=== PATIENT | female | born 1995 | race Caucasian/White ===

== ENCOUNTER 2019-06-23 01:26 | Emergency (ER) | payer OTHER ==
--- NOTE | 2019-06-23 01:53 | PDOC ---
*Physical Exam - Vital Signs Last Vital Signs Temp Pulse Resp BP Pulse Ox 97.6 F 100 H 18 129/97 100 06/23/19 01:37 06/23/19 01:37 06/23/19 01:37 06/23/19 01:37 06/23/19 01:37 Medical Decision Making - Medical Decision Making 06/23/19 01:52 Patient seen by the advanced practice provider under my direct supervision. Ancillary testing reviewed as necessary. I agree with plan as outlined by the advanced practice provider. Discharge - Discharge Information Problems reviewed: Yes Clinical Impression/Diagnosis: History of exposure to blood or body fluid - Follow up/Referral Referrals: Jacob Castillo [Primary Care Provider] - - Patient Discharge Instructions
[2019-06-23 02:00] VITALS: BP 129/97; PULSE 100; TEMP 97.6; BMI 23.6
--- NOTE | 2019-06-23 02:12 | PDOC ---
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 patient reports that she had gloves on and felt a prick. patient post exposure washed hands Timing: just prior to arrival Past History - Past Medical History Allergies/Adverse Reactions: Allergies Allergy/AdvReac Type Severity Reaction Status Date / Time ibuprofen Allergy Verified 06/23/19 01:39 COPD: No - Psycho Social/Smoking Cessation Hx Smoking History: Never smoked *Physical Exam - Vital Signs Last Vital Signs Temp Pulse Resp BP Pulse Ox 97.6 F 100 H 18 129/97 100 06/23/19 01:37 06/23/19 01:37 06/23/19 01:37 06/23/19 01:37 06/23/19 01:37 - Physical Exam General Appearance: Yes: Appropriately Dressed Integumentary: positive: Normal Color, Dry, Warm, Other (punch noted to right index finger) Neurologic: positive: Fully Oriented, Alert, Normal Mood/Affect Post Exposure - ED Protocol - Exposure Treatment Washing/Decontamination: Soap/Water Source Patient HIV Status:: Unknown ( of source patient) Is PEP indicated?: No Prophylaxis for HIV discussed?: Yes Prophylaxis given?: No - Referrals Employee Referred to Employee Health:: Yes (Source patient labs pending. PEP held for now. ) ED Progress Note - Progress Note Progress Note: 06/23/19 02:26 A: post exposure evaluation P: labs source patient tested 06/25/19 11:06 Source patient test reviewed. Informed patient of the [ending labs Medical Decision Making - Medical Decision Making 06/23/19 02:20 Source patient: 06/23/19 02:50 source patient gave Verbal consent. Hepatitis panel and HIV ordered for source patient. Nursing merchandise supervisor Judith aware of this and reports that lab will be drawn in the AM. we will get baseline labs for eliezer. Ms. Apodaca is to follow up with employee gaurav for results of source patient and self. PEP held for now Discharge - Discharge Information Problems reviewed: Yes Clinical Impression/Diagnosis: History of exposure to blood or body fluid, Needle stick injury of finger Disposition: HOME - Follow up/Referral Referrals: Jacob Castillo [Primary Care Provider] - - Patient Discharge Instructions Patient Printed Discharge Instructions: How to Handle Body Fluid Exposure -- Healthcare Worker Additional Instructions: please follow up with employee health for results of Source patient and self. MRN source patient:: - Post Discharge Activity Work/Back to School Note: Back to Work
[2019-06-23 03:13] LABS: BASO % 0.7 % (0-2.0); EOS % 2.5 % (0-4.5); HEMATOCRIT 39.8 % (32.4-45.2); HEMOGLOBIN 14.1 GM/dL (10.7-15.3); LYMPH % 33.7 % (8-40); MCHC 35.5 g/dl (32.0-36.0); MEAN CELL VOLUME 90.1 fl (80-96); MEAN PLT VOLUME 8.8 fl (7.5-11.1); MONO % 9.1 % (3.8-10.2); PLATELET COUNT 208 K/MM3 (134-434); RBC 4.42 M/mm3 (3.60-5.2); RDW 13.2 % (11.6-15.6); WHITE BLOOD COUNT 8.2 K/mm3 (4.0-10.0)
[2019-06-23 03:38] LABS: ALBUMIN 4.6 g/dl (3.4-5.0); BILIRUBIN,TOTAL 0.3 mg/dL (0.2-1); CREATININE 0.8 mg/dL (0.55-1.3); POTASSIUM 3.8 mmol/L (3.5-5.1); TOT PROT 7.9 g/dl (6.4-8.2)
== END 2019-06-23 03:34 | disposition home or self-care (01) ==
LOC: JER 01:26
DX: Z77.21 Contact with and (suspected) exposure to potentially hazardous body fluids (principal); W46.1XXA Contact with contaminated hypodermic needle, initial encounter; Y93.89 Activity, other specified; Y92.239 Unspecified place in hospital as the place of occurrence of the external cause; Y99.0 Civilian activity done for income or pay; Z88.8 Allergy status to other drugs, medicaments and biological substances
CPT/HCPCS: 36415; 80053; 85025; 86317; 86704; 86706; 86803; 87340; 87389; 99282-25

== ENCOUNTER 2019-07-28 09:03 | Emergency (ER) | payer OTHER ==
[2019-07-28 09:12] VITALS: BP 153/97; PULSE 80; TEMP 98.2; BMI 23.1
--- NOTE | 2019-07-28 09:22 | PDOC ---
History of Present Illness - General Chief Complaint: Blood/Body Fluid Exposure SJR Stated Complaint: NEEDLE STICK Time Seen by Provider: 07/28/19 09:19 History Source: Patient Exam Limitations: No Limitations - History of Present Illness Initial Comments: 07/28/19 09:19 Patient works as a nurse on the eighth floor at [employer], and was disposing of both a syringe/needle and Colace wrapper with sharp edge and feels may have injured her right third digit. There was no bleeding, but felt sharp edge. Discussed this case with her nurse entertainment manager who recommended her being evaluated for possible injury and exposure. Patient denies bleeding, denies pain to her finger, and no other injury. Is this a multiple visit Asthma Patient?: No Timing/Duration: unsure Past History - Travel Traveled outside of the country in the last 30 days: No Close contact w/someone who was outside of country & ill: No - Past Medical History Allergies/Adverse Reactions: Allergies Allergy/AdvReac Type Severity Reaction Status Date / Time ibuprofen Allergy Verified 07/28/19 09:08 Home Medications: Ambulatory Orders NK [No Known Home Medication] 07/28/19 COPD: No - Immunization History Immunization Up to Date: Yes - Psycho Social/Smoking Cessation Hx Smoking History: Never smoked Information on smoking cessation initiated: No Hx Alcohol Use: No Drug/Substance Use Hx: No Review of Systems - Review of Systems Able to Perform ROS?: Yes Is the patient limited Sinhala proficient: Yes Constitutional: Yes: Symptoms Reported, See HPI HEENTM: Yes: Symptoms Reported, See HPI All Other Systems: Reviewed and Negative *Physical Exam - Vital Signs Last Vital Signs Temp Pulse Resp BP Pulse Ox 98.2 F 80 18 153/97 100 07/28/19 09:09 07/28/19 09:09 07/28/19 09:09 07/28/19 09:09 07/28/19 09:09 - Physical Exam General Appearance: Yes: Nourished, Appropriately Dressed. No: Apparent Distress HEENT: positive: RACHAEL, Normal ENT Inspection, TMs Normal, Pharynx Normal Neck: positive: Supple. negative: Tender Respiratory/Chest: positive: Lungs Clear Extremity: positive: Normal Capillary Refill, Normal Inspection, Normal Range of Motion Integumentary: positive: Normal Color, Dry, Warm, Other (Superficial abrasion noted to the distal aspect of the left third digit with no puncture wound, no active bleeding, no bruising, full range of motion without evidence of significant injury.) Neurologic: positive: burlap bag sewer II-XII NML intact, Fully Oriented, Alert, Normal Mood/ Affect, Normal Response, Motor Strength /5 Medical Decision Making - Medical Decision Making 07/28/19 17:04 Nurse on eighth floor with concerns about exposure however skin does not appear to be broken therefore there was no exposure encouraged. Recommended to use more caution, and keep wound protected until completely healed. Discharge - Discharge Information Problems reviewed: Yes Clinical Impression/Diagnosis: Finger abrasion Qualifiers: Encounter type: initial encounter Qualified Code(s): S60.419A - Abrasion of unspecified finger, initial encounter Condition: Stable Disposition: HOME - Admission No - Follow up/Referral Referrals: Jacob Castillo [Primary Care Provider] - - Patient Discharge Instructions Additional Instructions: Keep finger clean and dry - Post Discharge Activity Work/Back to School Note: Back to Work
== END 2019-07-28 09:52 | disposition home or self-care (01) ==
LOC: JERFT 09:03
CPT/HCPCS: 99281-25